=== PATIENT | female | born 1945 | race Caucasian/White ===

== ENCOUNTER → 2016-08-14 | Outpatient (CLI) | payer MEDICARE, OTHER ==
[~2016-08-14] MED LIST: AC500T PO; ASP81TEC PO; CHLO10CA6 PO; CHOL10003 PO; Fish Oil PO; HYDR-757 PO; Librium PO; METF500T4 PO; METO-333 PO; Mag Ox PO; Metformin PO; Metoprolol Tartrate PO; PRD20T PO; RNT150T PO; RT-ALBUINH IH; SERT100T PO; SIMV40TA4 PO; Simvastatin PO; Vitamin D PO; Zoloft PO
--- NOTE | 2016-08-14 21:10 | Diagnostic Imaging Report ---
EXAM: Left breast ultrasound. INDICATION: Asymmetry seen in the inferior aspect of the left breast. FINDINGS: The retroareolar region and the lower half of the left breast were scanned with no significant abnormality seen. In the retroareolar region a 3 mm simple cyst is seen. IMPRESSION: No significant abnormality. The mammographic asymmetry is likely related to the overlying skin moles. BI-RADS 2. ACR BI-RADS Category 2: Benign findings. Result letter will be mailed to the patient. Note: At least 10% of breast cancer is not imaged by mammography. Dictated by: Dictated on workstation # [id number]
--- NOTE | 2016-08-14 21:14 | Diagnostic Imaging Report ---
EXAM: Bilateral diagnostic mammogram. The current study was also evaluated with a Computer Aided Detection (CAD) system. INDICATION: Asymmetry along the central posterior aspect of the left CC projection. COMPARISON: 06/21/2015. FINDINGS: The breasts are composed of scattered fibroglandular densities. There is no mass, architectural distortion or suspicious clustered calcification. The previously seen asymmetry appears less prominent on the current exam, likely related to summation artifact of parenchyma. There is also a skin lesion marked near the area of asymmetry and perhaps this is related to the skin lesion. IMPRESSION: No adverse development. The previously seen asymmetry could be related to a skin lesion marked at this time. Ultrasound evaluation pending. BI-RADS 0. ACR BI-RADS Category 0: Incomplete. (Needs additional imaging evaluation). Result letter will be mailed to the patient. Note: At least 10% of breast cancer is not imaged by mammography. Dictated by: Dictated on workstation # [id number]
== END ==
LOC: RAD 13:13
PROVIDERS: ATTEND Nurse Practitioner Family
DX: R92.8 Other abnormal and inconclusive findings on diagnostic imaging of breast (principal)
CPT/HCPCS: 76642; 77066

== ENCOUNTER → 2017-10-02 | Outpatient (CLI) | payer MEDICARE, OTHER ==
[~2017-10-02] MED LIST changes: -METF500T4 PO; +METF500T5 PO
--- NOTE | 2017-10-02 19:13 | Diagnostic Imaging Report ---
INDICATION: Routine screening. Comparison is made with prior study from 08/14/2016 and 06/15/2015. 2D and 3D bilateral screening mammography was performed. The current study was also evaluated with a Computer Aided Detection (CAD) system. FINDINGS: Scattered fibroglandular densities are identified bilaterally. Circumscribed densities are identified bilaterally. No spiculated mass or malignant-appearing microcalcifications are seen. The axillae are unremarkable. IMPRESSION: No mammographic features suspicious for malignancy are identified. ACR BI-RADS Category 2: Benign findings. Result letter will be mailed to the patient. Note: At least 10% of breast cancer is not imaged by mammography. Dictated by: Dictated on workstation # [id number]
== END ==
LOC: RAD 11:28
PROVIDERS: ATTEND Nurse Practitioner Family
DX: Z12.31 Encounter for screening mammogram for malignant neoplasm of breast (principal)
CPT/HCPCS: 77067

== ENCOUNTER → 2018-11-05 | Outpatient (CLI) | payer MEDICARE, OTHER ==
[~2018-11-05] MED LIST changes: +METF-397 PO; -METF500T5 PO
--- NOTE | 2018-11-05 18:49 | Diagnostic Imaging Report ---
INDICATION: Routine screening. COMPARISON is made with prior mammogram from 10/02/2017 and 08/14/2016. 2-D and 3-D bilateral screening mammography was performed with CAD. FINDINGS: Scattered fibroglandular densities are identified bilaterally. A circumscribed density in the left breast appears stable and consistent with benign etiology. No new mass or malignant appearing microcalcifications are seen. Axillae are unremarkable. IMPRESSION: BI-RADS category 2. No mammographic features suspicious for malignancy are identified. Dictated by: Dictated on workstation # [id number]
== END ==
LOC: RAD 13:07
PROVIDERS: ATTEND Internal Medicine
DX: Z12.31 Encounter for screening mammogram for malignant neoplasm of breast (principal); J44.9 Chronic obstructive pulmonary disease, unspecified; L82.0 Inflamed seborrheic keratosis; I10 Essential (primary) hypertension; R63.4 Abnormal weight loss
CPT/HCPCS: 77067

== ENCOUNTER → 2019-11-10 | Outpatient (CLI) | payer MEDICARE, OTHER ==
[~2019-11-10] MED LIST changes: +SIMV40TA25 PO; -SIMV40TA4 PO
--- NOTE | 2019-11-10 12:19 | Diagnostic Imaging Report ---
INDICATION: Routine screening. COMPARISON: 11/05/2018 and 10/02/2017. TECHNIQUE: 2D and 3D bilateral screening mammography was performed with CAD. FINDINGS: Scattered fibroglandular densities are identified bilaterally. The circumscribed nodule in the left breast previously noted appears slightly smaller on today's exam. No new mass is identified. No malignant appearing microcalcifications are seen. The axillae are unremarkable. IMPRESSION: No mammographic features suspicious for malignancy are identified. ACR BI-RADS Category 2: Benign findings. Result letter will be mailed to the patient. Note: At least 10% of breast cancer is not imaged by mammography. Dictated by: Dictated on workstation # [id number]
== END ==
LOC: RAD 11:03
PROVIDERS: ATTEND Internal Medicine
DX: Z12.31 Encounter for screening mammogram for malignant neoplasm of breast (principal)
CPT/HCPCS: 77063; 77067

== ENCOUNTER → 2020-12-08 | Outpatient (CLI) | payer MEDICARE, OTHER ==
--- NOTE | 2020-12-09 13:21 | Diagnostic Imaging Report ---
INDICATION: 2-D and 3-D digital screening with CAD. COMPARISON: 10/2019, 10/2018 and 09/2017. FINDINGS: There are scattered fibroglandular densities in the breasts. No mass, architecture distortion, spiculated lesion or suspicious calcifications. No findings of malignancy. IMPRESSION: Stable negative mammograms. BI-RADS Category 1 ACR BI-RADS Category 1: Negative. Result letter will be mailed to the patient. Note: At least 10% of breast cancer is not imaged by mammography. Dictated by: Dictated on workstation # [id number]
== END ==
LOC: RAD 15:00
PROVIDERS: ATTEND Internal Medicine
DX: Z12.31 Encounter for screening mammogram for malignant neoplasm of breast (principal)
CPT/HCPCS: 77063; 77067

== ENCOUNTER → 2021-06-09 | Outpatient (CLI) | payer MEDICARE, OTHER ==
--- NOTE | 2021-06-09 16:57 | Diagnostic Imaging Report ---
EXAMINATION: Lumbosacral spine 2 or 3 views HISTORY: Back pain. COMPARISON: 06/15/2015. FINDINGS: There is no acute fracture or dislocation of the lumbar spine. Grade 1 retrolisthesis of L3 on L4 is noted. No focal osseous lesions are seen. Degenerative changes are present in the lumbar spine with disc height loss, disc osteophyte complexes, and facet hypertrophy. These are most prominent at the L3-L4 and L5-S1 levels. The paraspinal soft tissues are unremarkable. IMPRESSION: 1. No acute fracture or dislocation in the lumbar spine. 2. Grade 1 retrolisthesis of L3 on L4. 3. Degenerative changes in the lumbar spine greatest at L3-L4 and L5-S1. These have increased since the prior exam. Dictated by: Dictated on workstation # [id number]
== END ==
LOC: RAD 15:45
PROVIDERS: ATTEND Internal Medicine
DX: M47.816 Spondylosis without myelopathy or radiculopathy, lumbar region (principal); M47.817 Spondylosis without myelopathy or radiculopathy, lumbosacral region; M51.36 Other intervertebral disc degeneration, lumbar region; M43.16 Spondylolisthesis, lumbar region
CPT/HCPCS: 72100

== ENCOUNTER → 2021-12-12 | Outpatient (CLI) | payer MEDICARE, OTHER ==
--- NOTE | 2021-12-13 10:17 | Diagnostic Imaging Report ---
INDICATION: Screening. EXAMINATION: Bilateral digital 3D screening with CAD. COMPARISON: 12/09/2020, 11/10/2019, and 11/15/2018. BREAST DENSITY: 2. FINDINGS: There is no breast mass, spiculated lesion, architectural distortion, suspicious calcifications, or findings to suggest malignancy. There has been no change. IMPRESSION: Negative mammography. ACR BI-RADS Category 1: Negative. Result letter will be mailed to the patient. Note: At least 10% of breast cancer is not imaged by mammography. Dictated by: Dictated on workstation # [id number]
== END ==
LOC: RAD 14:13
PROVIDERS: ATTEND Internal Medicine
DX: Z12.31 Encounter for screening mammogram for malignant neoplasm of breast (principal)
CPT/HCPCS: 77063; 77067

== ENCOUNTER → 2022-01-09 | Outpatient (CLI) | payer MEDICARE ==
[~2022-01-09] MED LIST changes: +CATHETER FLUSH 10 ML SYR IV PRN; +HOLD METFORMIN - RECEIVED CONTRAST 20 ML VIAL IV SCH; +IOHEXOL 350 MG/ML 100 ML (OMNIPAQUE 350) VIAL IV ONE; +NS 100 ML (IVPB) BAG IV ONE
[2022-01-09 11:12] LABS: CREATININE SERUM 0.86 MG/DL (0.60-1.30)
--- NOTE | 2022-01-09 19:31 | Diagnostic Imaging Report ---
CT CHEST W TECHNIQUE: Multiple contiguous axial images were obtained through the chest with the use of intravenous contrast. All CT scans use one or more of the following dose optimizing techniques: automated exposure control, MA and/or KvP adjustment based on a patient size and exam type, or iterative reconstruction. INDICATION: Pulmonary nodule COMPARISON: None available FINDINGS: Lungs and airway: No abnormality in the trachea. Severe centrilobular emphysema is present. There are few scattered calcified pulmonary or less pulmonary nodules indicative of old granulomatous infection. No pneumonia or edema. There are no suspicious pulmonary nodules. Pleura: No pleural effusion or pneumothorax. Heart and mediastinum: Thyroid is normal. No supraclavicular or axillary lymphadenopathy. No mediastinal or hilar lymphadenopathy. The heart is normal in size and there is no pericardial effusion. Mild aortic annular calcifications. Normal caliber thoracic aorta. Small sliding-type hiatal hernia with potential changes of prior fundoplication versus mild wall thickening of the distal esophagus and stomach. Upper abdomen: No concerning abnormality in the upper abdomen. A few cysts are present within the liver. Musculoskeletal: No worrisome focal osseous lesions. IMPRESSION: 1. Severe emphysema without suspicious pulmonary nodule. 2. Small sliding-type hiatal hernia with either postsurgical changes of fundoplication versus wall thickening around the GE junction. If patient has not had a gastric fundoplication, consider EGD for further assessment. Dictated by: Dictated on workstation # [id number]
== END ==
LOC: RAD 10:39
PROVIDERS: ATTEND Internal Medicine
DX: Z12.2 Encounter for screening for malignant neoplasm of respiratory organs (principal); J43.9 Emphysema, unspecified; K44.9 Diaphragmatic hernia without obstruction or gangrene
CPT/HCPCS: 36415; 71260; 82565; 84520

== ENCOUNTER 2022-02-07 13:13 | Emergency (ER) | payer MEDICARE ==
[~2022-02-07] VITALS: Ht 160 cm; Wt 58.9 kg
[~2022-02-07 13:13] MED LIST changes: -CATHETER FLUSH 10 ML SYR IV PRN; -HOLD METFORMIN - RECEIVED CONTRAST 20 ML VIAL IV SCH; -IOHEXOL 350 MG/ML 100 ML (OMNIPAQUE 350) VIAL IV ONE; -NS 100 ML (IVPB) BAG IV ONE
--- NOTE | 2022-02-07 13:36 | ED Respiratory ---
General Chief Complaint: COVID19 Suspect/Confirmed Stated Complaint: COVID +/SOA/COUGH Nursing Triage Note: PT AMB TO [facility] WITH COMPLAINT OF COVID. CALL PCP TODAY WITH COMPLAINT OF WORSENING SYMPTOMS. STATES SYMPTOMS STARTED SUNDAY. O2 77% ON RA ON ARRIVAL. Source: patient, other (PCP) Exam Limitations: no limitations History of Present Illness Date Seen by Provider: Feb 07, 2022 Time Seen by Provider: 13:34 Initial Comments This is a well-appearing 76-year-old female with a history of COPD who is on 2 and half liters of oxygen continually. She was on a televisit with her primary care provider for positive COVID test today. Symptom onset was 6 days ago. Upon arrival she was 77% on room air, however once he placed her on her home 2.5 L she increase to 98%. Allergies and Home Medications Allergies Coded Allergies: cephalexin (Verified Allergy, Unknown, 05/22/06) Patient Home Medication List Acetaminophen (Tylenol) 500 Mg Tablet, 1,000 MG PO Q6H PRN for PAIN, (Reported) Entered as Reported by: JIAN BUSTOS on 03/17/13 0722 Albuterol Sulfate (Proventil Hfa) 6.7 Gm Hfa.aer.ad, 6.7 GM IH QID PRN for wheezing Prescribed by: DAVID BE on 02/07/16 1054 Aspirin (Aspirin Ec 81 Mg) 81 Mg Tabec, 81 MG PO DAILY, (Reported) Entered as Reported by: KAREN BRITO on 01/20/13 1855 Chlordiazepoxide HCl (Chlordiazepoxide HCl) 10 Mg Capsule, 10 MG PO DAILY, (Reported) Entered as Reported by: LAURA ZAMAN on 02/07/16 0953 Cholecalciferol (Vitamin D3) (Vitamin D3) 1,000 Unit Tablet, 1,000 UNIT PO DAILY, (Reported) Entered as Reported by: LAURA ZAMAN on 02/07/16 0953 Metformin HCl (Metformin HCl) 500 Mg Tablet, 500 MG PO DAILY, (Reported) Entered as Reported by: LAURA ZAMAN on 02/07/16 09 Metoprolol Tartrate (Metoprolol Tartrate) 25 Mg Tablet, 25 MG PO DAILY, (Reported) Entered as Reported by: LAURA ZAMAN on 02/07/16 0953 Prednisone (Prednisone) 20 Mg Tab, 20 MG PO as directed Prescribed by: DAVID BE on 02/07/16 1054 Ranitidine Hcl (Zantac 150 Mg) 150 Mg Tablet, 150 MG PO DAILY, (Reported) Entered as Reported by: CAITIE MATTHEWS on 01/20/13 2248 Sertraline HCl (Zoloft) 100 Mg Tablet, 100 MG PO HS, (Reported) Entered as Reported by: LAURA ZAMAN on 02/07/16 0953 Simvastatin (Simvastatin) 40 Mg Tablet, 40 MG PO HS, (Reported) Entered as Reported by: LAURA ZAMAN on 02/07/16 0953 Past Qakrpkf-Iofrno-Ibubtu Hx Patient Social History Tobacco Use?: No Smoking Status: Former Smoker Use of E-Cig and/or Vaping dev: No Substance use?: No Alcohol Use?: No Pt feels they are or have been: No Immunizations Up To Date Tetanus Booster (TDap): More than 5yrs First/Initial COVID19 Vaccinat: YES Second COVID19 Vaccination Efrem: YES Seasonal Allergies Seasonal Allergies: No Past Medical History Hysterectomy, Tonsillectomy COPD Currently Using CPAP: No Currently Using BIPAP: No High Cholesterol Reproductive Disorders: No [employer] History: Hysterectomy Anxiety, Depression Adverse Reaction/Blood Tranf: No Family Medical History Family history: Gastrointestinal disease 19 MOTHER (hiatal hernia) Headache 19 FATHER ( from brain anuisium at age 85) History of - disorder 19 MOTHER (rt leg amputation from complication of knee replacement) G8 SISTER (has ms) Physical Exam Vital Signs - First Documented 02/07/22 02/07/22 13:15 13:17 Temp 36.6 Pulse 95 Resp 16 B/P (MAP) 144/82 (102) Pulse Ox 95 O2 Delivery Nasal Cannula O2 Flow Rate 2.00 Capillary Refill : Less Than 3 Seconds Height: 5'8.00" Weight: 168lbs. 1.0oz. 76.626988mn; 23.00 BMI Method:Stated Progress/Results/Core Measures Suspected Sepsis SIRS Temperature: Pulse: 95 Respiratory Rate: 16 Laboratory Tests 02/07/22 13:32: White Blood Count 4.7 Blood Pressure 144 /82 Mean: 102 Laboratory Tests 02/07/22 13:32: Creatinine 0.80, Platelet Count 185, Total Bilirubin 0.4 Results/Orders Lab Results Laboratory Tests Test 02/07/22 13:32 Range/Units White Blood Count 4.7 4.3-11.0 10^3/uL Red Blood Count 5.09 3.80-5.11 10^6/uL Hemoglobin 14.9 11.5-16.0 g/dL Hematocrit 46 35-52 % Mean Corpuscular Volume 90 80-99 fL Mean Corpuscular Hemoglobin 29 25-34 pg Mean Corpuscular Hemoglobin Concent 33 32-36 g/dL Red Cell Distribution Width 11.8 10.0-14.5 % Platelet Count 185 130-400 10^3/uL Mean Platelet Volume 10.2 9.0-12.2 fL Immature Granulocyte % (Auto) 0 % Neutrophils (%) (Auto) 71 42-75 % Lymphocytes (%) (Auto) 20 12-44 % Monocytes (%) (Auto) 8 0-12 % Eosinophils (%) (Auto) 1 0-10 % Basophils (%) (Auto) 0 0-10 % Neutrophils # (Auto) 3.3 1.8-7.8 10^3/uL Lymphocytes # (Auto) 1.0 1.0-4.0 10^3/uL Monocytes # (Auto) 0.4 0.0-1.0 10^3/uL Eosinophils # (Auto) 0.0 0.0-0.3 10^3/uL Basophils # (Auto) 0.0 0.0-0.1 10^3/uL Immature Granulocyte # (Auto) 0.0 0.0-0.1 10^3/uL D-Dimer < 0.27 0.00-0.49 UG/ML Sodium Level 144 135-145 MMOL/L Potassium Level 3.4 L 3.6-5.0 MMOL/L Chloride Level 104 98-107 MMOL/L Carbon Dioxide Level 27 21-32 MMOL/L Anion Gap 13 5-14 MMOL/L Blood Urea Nitrogen 11 7-18 MG/DL Creatinine 0.80 0.60-1.30 MG/DL Estimat Glomerular Filtration Rate 77 BUN/Creatinine Ratio 14 Glucose Level 158 H 70-105 MG/DL Calcium Level 9.2 8.5-10.1 MG/DL Corrected Calcium 9.1 8.5-10.1 MG/DL Total Bilirubin 0.4 0.1-1.0 MG/DL Aspartate Amino Transf (AST/SGOT) 20 5-34 U/L Alanine Aminotransferase (ALT/SGPT) 16 0-55 U/L Alkaline Phosphatase 57 40-136 U/L C-Reactive Protein High Sensitivity 2.04 H 0.00-0.50 MG/DL Total Protein 7.0 6.4-8.2 GM/DL Albumin 4.1 3.2-4.5 GM/DL My Orders Orders - LEXUS FERMIN APRN Chest 1 View, Ap/Pa Only (02/07/22 13:32) Bebtelovimab (Bebtelovimab) (02/07/22 14:30) Nursing Communication (Order) (02/07/22 14:24) Medications Given in ED Current Medications Medications Dose Ordered Sig/Gregorio Route Start Time Stop Time Status Last Admin Dose Admin Bebtelovimab 175 mg ONCE ONCE IV 02/07/22 14:30 02/07/22 14:31 DC 02/07/22 14:55 175 MG Vital Signs/I&O 02/07/22 02/07/22 02/07/22 13:15 13:17 13:20 Temp 36.6 Pulse 95 Resp 16 B/P (MAP) 144/82 (102) Pulse Ox 95 98 O2 Delivery Nasal Cannula OxyMask Nasal Cannula O2 Flow Rate 2.00 6.00 2.00 Capillary Refill : Less Than 3 Seconds Blood Pressure Mean: 102 Progress Note : Progress Note Meets all inclusion criteria and is considered high risk based on (). Pt. Was provided with "Fact sheet for patients and caregivers" and informed the bebtelovimab is an unapproved drug authorized for use under EUA for the treatment of mild to moderate COVID-19 symptoms. Patient consented for infusion and was administered in the ER. Was observed for one hour post infusion, no adverse reactions noted. Discharge POC reviewed and he/she is agreeable with plan. Diagnostic Imaging Diagonstic Imaging: Xray Departure Impression Primary Impression: COVID-19 Disposition: 01 HOME, SELF-CARE Condition: Improved Departure-Patient Inst. Decision time for Depature: 15:15 Referrals: DHRUV HERNANDEZ DO (PCP/Family) Primary Care Physician Patient Instructions: Bebtelovimab FDA Fact Sheet Add. Discharge Instructions: Plan: 1. Discharge home. You received monoclonal antibody infusion today. 2. Stay home for 5 days and then mask when in public for additional 5 days. If you are still running fever, you will need to stay home until you are fever free. 3. Wash your hands frequently, disinfect surfaces at home. Try to isolate yourself from others in the house as much as you are able. 4. Clean areas that may have blood, stool, or body fluids on them. 5. Cover your mouth and nose when you cough or sneeze, throw away tissues, and wash hands immediately. 6. Return to ER if you develop: trouble breathing, persistent pain or pressur in the chest, new confusion, inabililty to wake or stay awake, pale, morillo, blue- colored skin, lips, or nail beds depending on skin tone. 7. Return to ER for any other new, concerning, or worsening symptoms. All discharge instructions reviewed with patient and/or family. Voiced understanding. LEXUS FERMIN GEOPHYSICS SCIENTIST Feb 07, 2022 13:35
[2022-02-07 13:42] LABS: BASOPHILS % (AUTO) 0 % (0-10); EOSINOPHILS % (AUTO) 1 % (0-10); HEMATOCRIT 46 % (35-52); HEMOGLOBIN 14.9 g/dL (11.5-16.0); LYMPHOCYTES % (AUTO) 20 % (12-44); MEAN CORPUSCULAR HEMOGLOBIN 29 pg (25-34); MEAN CORPUSCULAR HGB CONC 33 g/dL (32-36); MEAN CORPUSCULAR VOLUME 90 fL (80-99); MEAN PLATELET VOLUME 10.2 fL (9.0-12.2); MONOCYTES # (AUTO) 0.4 10^3/uL (0.0-1.0); MONOCYTES % (AUTO) 8 % (0-12); NEUTROPHILS # (AUTO) 3.3 10^3/uL (1.8-7.8); NEUTROPHILS % (AUTO) 71 % (42-75); PLATELET COUNT 185 10^3/uL (130-400); WHITE BLOOD COUNT 4.7 10^3/uL (4.3-11.0)
--- NOTE | 2022-02-07 13:56 | Diagnostic Imaging Report ---
INDICATION: COVID infection. AP view of the chest is obtained with comparison made to study of 02/05/2016. FINDINGS: Heart size and pulmonary vascularity are within normal limits. There is air trapping in the upper lobes indicating emphysema. No consolidation, pneumothorax, or significant pleural fluid is seen. IMPRESSION: Stable background COPD without acute abnormality detected. Dictated by: Dictated on workstation # [id number]
[2022-02-07 14:07] LABS: ALBUMIN 4.1 GM/DL (3.2-4.5); POTASSIUM 3.4 MMOL/L (3.6-5.0)
[2022-02-07 14:08] LABS: CALCIUM 9.2 MG/DL (8.5-10.1)
[2022-02-07 14:11] LABS: BILIRUBIN,TOTAL 0.4 MG/DL (0.1-1.0)
[2022-02-07 14:13] LABS: CREATININE SERUM 0.8 MG/DL (0.60-1.30)
[2022-02-07] MEDS ORDERED: BEBTELOVIMAB 175 MG/2 ML VIAL IV ONE (14:30)
[2022-02-07 16:00] VITALS: BP 137/85
== END 2022-02-07 16:00 | disposition home or self-care (01) ==
LOC: EDUNIT# 13:13 → ER 13:16
DX: U07.1 COVID-19 (principal); J44.9 Chronic obstructive pulmonary disease, unspecified; Z87.891 Personal history of nicotine dependence; Z99.81 Dependence on supplemental oxygen; Z73.0 Burn-out
CPT/HCPCS: 36415; 71045; 80053; 85025; 85379; 86141; 93041

== ENCOUNTER → 2023-02-08 | Outpatient (CLI) | payer MEDICARE ==
--- NOTE | 2023-02-09 09:21 | Diagnostic Imaging Report ---
Indication: Routine screening. Comparison is made with prior mammogram from 12/12/2021 and 12/08/2020. 2-D and 3-D bilateral screening mammography was performed with CAD. Scattered fibroglandular densities are identified bilaterally. The parenchymal pattern is stable. No mass or malignant-appearing microcalcifications are seen. Axillae are unremarkable. IMPRESSION: BI-RADS Category 1 No mammographic features suspicious for malignancy are identified. ACR BI-RADS Category 1: Negative. Result letter will be mailed to the patient. Note: At least 10% of breast cancer is not imaged by mammography. Dictated by: Dictated on workstation # [id number]
== END ==
LOC: RAD 14:43
PROVIDERS: ATTEND Internal Medicine
DX: Z12.31 Encounter for screening mammogram for malignant neoplasm of breast (principal)
CPT/HCPCS: 77063; 77067